=== PATIENT | male | born 1935 | race Caucasian/White ===

== ENCOUNTER 2016-09-19 09:07 | Inpatient (IN) | payer MEDICARE ==
[~2016-09-19] VITALS: Ht 172.7 cm; Wt 80.5 kg
[~2016-09-19 09:07] MED LIST: ASA CHILDREN'S81 MG PO; BRILINTA90 MG PO; COREG6.25 MG PO; LIPITOR DPS40 MG PO; NORVASC DPS10 MG PO; PROTONIX40 MG PO; ZESTRIL10 MG PO
--- NOTE | 2016-09-21 10:26 | CO ---
ADMIT: 09/19/2016 RM/LOC: 622 [facility] MR#: [id number] [address] [address] MAG [place]OHANSEN [address] [address] [place] [address] Consultation SEX: M AGE: 81 : 1935 DATE OF CONSULTATION: 09/19/2016 ATTENDING PHYSICIAN: Redd Lay CONSULTING PHYSICIAN: Jason Polk MD HISTORY OF PRESENT ILLNESS: The patient is a very pleasant 81-year-old male, who has never had previous colonoscopy screening, who about a year ago had upper GI bleed. Dr. Monroe had done an upper endoscopy and noticed a little bleeding around his esophageal junction. He, at that time, was on Brilinta and aspirin I believe. He is currently off the Brilinta, but I believe, does take a daily aspirin now. He has been feeling normal and in no abdominal distress until he developed some kind of crampy abdominal discomfort and had two bloody bowel movements this morning, he described these as bright red. Since his last endoscopy by Dr. Monroe, he has been on omeprazole since that time on a consistent basis. Denies taking anything for arthritis, any nonsteroidals. His admitting hemoglobin was 11.7. His BUN was normal at 17. His repeat hemoglobin was 11.3. PAST MEDICAL HISTORY: Includes hypertension and coronary artery disease about a year ago. He did have a myocardial infarction. MEDICATIONS: His medications are outlined in the hospital chart, but I believe it includes: 1. Atorvastatin. 2. Lisinopril. 3. Aspirin. 4. Coreg. ALLERGIES: HE HAS NO ALLERGIES. SOCIAL HISTORY: He is a nondrinker, nonsmoker. FAMILY HISTORY: Denies a family history of coronary artery disease. REVIEW OF SYSTEMS: Denies headaches, chest pain, or shortness of breath. He has had bloody stools per HPI. No extremity complaints. No hematologic, neurologic, or psychiatric issues. PHYSICAL EXAMINATION: VITAL SIGNS: He is afebrile. Vitals stable. HEART: Regular. LUNGS: Clear. ADMIT: 09/19/2016 RM/LOC: 622 [facility] MR#: [id number] [address] [address] JORGEMAG TURNER Tracey [address] [place], [place] [id number] Consultation SEX: M AGE: 81 : 1935 ABDOMEN: Soft, nondistended, nontender. EXTREMITIES: No peripheral edema. NEURO: No focal neurologic deficits. ASSESSMENT AND PLAN: The patient is an 81-year-old male with likely a lower gastrointestinal bleed with it being bright red and being on scheduled proton pump inhibitor. The patient is very resistant about proceeding with colonoscopy surveillance. At this point in time, after discussion with Dr. Lay, we will take a watchful waiting approach, watch his hemoglobin and see if he clinically bleeds anymore. Depending on what we see, we may proceed with upper endoscopy or a combination of scopes if the patient is willing and/or possibly, just again, follow him as an outpatient. Jason Polk MD/ christina JOB #: [id number] CC: Redd Lay, Attending Physician Redd Lay, Family Physician
--- NOTE | 2016-09-21 14:56 | HP ---
ADMIT: 09/19/2016 RM/LOC: 622 [facility] MR#: [id number] [facility]#: [id number] [address] [address] [place] [address] [address] [facility] [place] [address] History and Physical SEX: M AGE: 81 : 1935 DATE OF SERVICE: CHIEF COMPLAINT: Melena. HISTORY OF PRESENT ILLNESS: The patient is a very pleasant 81-year-old male, normally resides at home with his , who reported abrupt onset early hours this morning of initially very dark tarry black stools, similar when he has had with peptic ulcer disease in the past. This proceeded to be repeated bowel movement with bright red blood. He has not had any since this morning. No new dizziness. No new weakness. No new shortness of breath. No new fatigue. He has not had anything similar. He does remain on his PPI and has been on this chcf. Previous event was related to being on Brilinta after a stent placement. He is only on aspirin at this point in time. The patient last scoped in June 2015. PAST MEDICAL HISTORY: 1. Coronary artery disease, status post stenting and STEMI in the fall of 2014. 2. Hypertension. 3. History of esophageal ulcer. FAMILY HISTORY: Father of liver cancer. MEDICATIONS: He is on: 1. Ferrous sulfate daily. 2. Aspirin 81 mg a day. 3. Atorvastatin 40 mg daily. 4. Carvedilol 6.25 mg p.o. b.i.d. 5. Protonix 40 mg daily. 6. Lisinopril 20 mg daily. SOCIAL HISTORY: He lives at home with his . Retired carbone. No smoking. REVIEW OF SYSTEMS: As per HPI. Otherwise, completely reviewed and negative. PHYSICAL EXAMINATION: VITAL SIGNS: Temperature 99.1, pulse 60, respiratory rate 20, blood pressure 116/67, O2 saturation 100% on room air. GENERAL: He is alert and oriented x3. No acute distress. Pleasant as always. HEENT: Normocephalic, atraumatic. Pupils equally reactive to light and accommodation. No scleral icterus. Dry mucous membranes. NECK: No lymphadenopathy. Soft, supple. Trachea midline. LUNGS: Clear to auscultation bilaterally. No wheezes, rales, or rhonchi. HEART: Regular rate and rhythm. No murmurs, rubs, or gallops. ABDOMEN: Soft, nontender, nondistended. Bowel sounds present. EXTREMITIES: No cyanosis, clubbing, or edema. MUSCULOSKELETAL: 5/5 strength in all 4 extremities. NEUROLOGICAL: No focal deficits noted. Cranial nerves II through XII are grossly intact. ADMIT: 09/19/2016 RM/LOC: 622 [facility] MR#: [id number] [address] [address] [address] JOHANSEN [address] [place] [address] History and Physical SEX: M AGE: 81 : 1935 SKIN: No rashes noted. Dry. LABORATORY AND X-RAY DATA: His creatinine is 1.2. Protime is normal. White count 6.3, hemoglobin 11.7, is now 11.3 upon repeat. Potassium 4.2. Fecal occult blood is positive. ASSESSMENT: 1. Gastrointestinal bleed with a history of esophageal ulcer, presumed recurrent. 2. Coronary artery disease. 3. Hypertension. PLAN: At this point in time, we will hold his aspirin. Hopefully, we can restart it soon. We will trend his hemoglobin at this point in time. We will have General Surgery see him. We will give him IV Protonix. Watch hemoglobin closely. Clears only at this point in time. Redd Lay MD/ christina JOB #: [id number] CC: Redd Lay, Attending Physician Redd Lay, Family Physician
--- NOTE | 2016-09-22 21:42 | DS ---
ADMIT: 09/19/2016 RM/LOC: 622 [facility] MR#: [id number] [address] [place] [place] [address] MAG [place]OHANSEN [address] [place] [address] Discharge Summary SEX: M AGE: 81 : 1935 ADMISSION DATE: 09/19/2016 DISCHARGE DATE: 09/21/2016 CONSULTATIONS: General Surgery. PROCEDURES: Underwent an EGD and colonoscopy on the 21 of September. FINAL DIAGNOSES: 1. Cecal mass, colon cancer. 2. Acute GI (gastrointestinal) bleed. 3. Coronary artery disease. 4. Hypertension. REASON FOR ADMISSION: The patient is a pleasant, 81-year-old gentleman, who presents to the emergency room with very dark, tarry melanotic stools, and then bright red blood per rectum. Admitted for further stabilization. HOSPITAL COURSE: The patient was admitted. No further blood loss. Had some drop in his hemoglobin. Ultimately, discussions with Surgery were had. Underwent the above-mentioned procedure. Found to have a cecal mass of colon cancer. CT scan was obtained, which showed a 3.6 cm mass in the cecum with extension into the base of the appendix suspicious for malignancy and 3 nearby lymph nodes that represent metastatic disease likely. Arrangements were made for him to follow up with General Surgery within short duration this next week. Plan on outpatient surgical resection likely. The patient to hold his aspirin through the weekend until he is seen by Surgery next week. DISCHARGE INSTRUCTIONS: Follow up with Surgery. See me in two weeks. Hold his aspirin for now. Redd Lay MD/ haile JOB #: [id number] CC: Redd Lay MD, Attending Physician Redd Lay MD, Family Physician
[2016-09-23] MEDS ORDERED: FEOSOL-DPS325 MG PO (15:18)
--- NOTE | 2016-09-24 10:38 | ER ---
ADMIT: 09/19/2016 RM/LOC: ER [facility] MR#: [id number] [address] [address] [place] [address] [address] [facility] [place] [address] Emergency Room Report SEX: M AGE: 81 : 1935 DATE: 09/19/2016 BRIEF ADDENDUM: Please see my T-sheet for complete review of systems past medical history, and physical exam. CHIEF COMPLAINT: Rectal bleeding. HISTORY OF PRESENT ILLNESS: This is a pleasant 81-year-old white male, who presents after 2 episodes of bright red blood in his stool today. The patient states at approximately 0600 hours and 0730 hours this morning, he had 2 right red stools with bright red blood in the toilet water. He does have a history of an upper GI bleed last July which he was hospitalized and diagnosed with peptic ulcer. He has been on omeprazole since that time. He also does take some iron pills and admits to some dark stools secondary to this medication. Does have a cardiac history with an ST elevated PA in 2014. He was on Brilinta secondary to some stents. With his first GI bleed, however, he is no longer on the Brilinta at this point. Otherwise, feels well today. No abdominal pain. No nausea, vomiting. COURSE IN THE EMERGENCY ROOM: The patient is seen and examined. He is afebrile and nontoxic. Blood pressures have been stable. Heart rate had been non tachycardic. No tenderness in the abdomen. Did do a rectal exam, no obvious external hemorrhoids or source of bleeding identified. Hemoccult- positive stools. Lab work on him today shows white count 6.3, hemoglobin 11.7, hematocrit 37.4, and platelets 164. Sodium 142, potassium 4.2, CO2 of 27, BUN 17, glucose 126, creatinine 1.2, AST 15, ALT 16. PT 11.4, INR 1.09, and PTT 27.6. O positive with antibody screen pending. He was given 80 Protonix IV. I also did consult with Dr. Lay who felt this patient was suitable for admission today for continued observation and trending of his blood count. IMPRESSION: 1. Gastrointestinal bleed with hematochezia. 2. History of coronary artery disease. 3. History of upper gastrointestinal bleed. DISPOSITION: Patient will be admitted to Med/Surg in the care of Dr. Lay for further evaluation and management. He is discharged to the floor in guarded but stable condition. HANNAH Anthony / Pio Mac MD / caydenl JOB #: [id number] CC: Pio Mac MD, Attending Physician Redd Lay MD, Family Physician
[2016-10-08] MEDS ORDERED: NORCO 5-325 TA1 EACH PO (07:42)
--- NOTE | 2016-10-29 08:51 | OR ---
ADMIT: 09/19/2016 RM/LOC: 2 [facility] MR#: [id number] [address] [address] MAG [place] [address] [address] [place] [address] Operative/Delivery Room Report SEX: M AGE: 81 : 1935 SURGERY DATE: 09/21/2016 SURGEON: Jason Polk MD PRE-PROCEDURE DIAGNOSES: 1. Anemia. 2. Gastrointestinal bleed. POSTPROCEDURE DIAGNOSES: 1. Gastritis. 2. Gastric fundic polyp. 3. Moderate focal sigmoid diverticular disease. 4. Cecal mass. PROCEDURES: 1. EGD with gastric body and fundic biopsies. 2. Colonoscopy with cecal mass biopsies. INDICATIONS: Patient 81-year-old presented with anemia and gastrointestinal bleed. He presented for upper and lower endoscopy. FINDINGS: The patient was taken to the endoscopy suite. IV sedation was given. He was placed in left lateral decubitus position. A bite block was placed in the patient's mouth. The gastroscope was introduced down the oropharynx, down the esophagus, into the stomach through the pylorus and the duodenum. The duodenal bulb, second and third portion of the duodenum appeared normal with no pathology. The gastric antrum appeared normal, but on retroflexion view, there was some obvious irritation and inflammation along the gastric body and just one focal area that did not seem to be a discrete ulcer and/or mass there, but certainly very friable area, so I did do biopsies in this area. Also on retroflexion view, right at the gastric side of the GE junction, there was a fundic, about 1, may be almost 2 cm fundic mass and/or polyp. I did do multiple biopsies of this polyp and sent it for histologic ADMIT: 09/19/2016 RM/LOC: 2 [facility] MR#: [id number] [address] [address] [place] [address] [address] [place] [address] Operative/Delivery Room Report SEX: M AGE: 81 : 1935 review. On examining the distal esophagus, it appeared normal with no Manzo's esophagus, no inflammation, no strictures. Remainder the esophagus normal. The gastroscope was removed. Next, the colonoscope introduced per rectum advanced to cecum. Right within the cecum proper, there was a large fungating cecal mass. Biopsies were taken of this mass. There was another polyp on the other side of the cecum that I just left alone simply because it will be removed with his colon resection. On remainder of the colonoscopic surveillance, there was a small transverse colon polyp, I removed with several bites of the cold biopsy forceps. There were no further masses or polyps but there was evidence of severe focal sigmoid diverticular disease. The rectal mucosa was normal. The colonoscope was removed. The patient tolerated the procedure without difficulty, transferred to recovery room in good condition. Jason Polk MD/ christina JOB #: [id number] CC: Redd Lay, Attending Physician Redd Lay, Family Physician
== END 2016-09-21 14:05 | disposition home or self-care (01) | DRG 375 ==
LOC: ER 09:07 → 6PED 11:05
PROVIDERS: ADMIT Internal Medicine
PROC: 0DBL8ZZ Excision of Transverse Colon, Via Natural or Artificial Opening Endoscopic (ICD-10-PCS; principal; 2016-09-21)
PROC: 0DB48ZX Excision of Esophagogastric Junction, Via Natural or Artificial Opening Endoscopic, Diagnostic (ICD-10-PCS; principal; 2016-09-21)
PROC: 0DB68ZX Excision of Stomach, Via Natural or Artificial Opening Endoscopic, Diagnostic (ICD-10-PCS; principal; 2016-09-21)
PROC: 0DBH8ZX Excision of Cecum, Via Natural or Artificial Opening Endoscopic, Diagnostic (ICD-10-PCS; principal; 2016-09-21)
DX: C18.0 Malignant neoplasm of cecum (principal); C77.9 Secondary and unspecified malignant neoplasm of lymph node, unspecified; K92.1 Melena; D62 Acute posthemorrhagic anemia; I10 Essential (primary) hypertension; D12.3 Benign neoplasm of transverse colon; K31.7 Polyp of stomach and duodenum; K29.70 Gastritis, unspecified, without bleeding; D13.1 Benign neoplasm of stomach; K57.30 Diverticulosis of large intestine without perforation or abscess without bleeding; I25.10 Atherosclerotic heart disease of native coronary artery without angina pectoris; Z95.5 Presence of coronary angioplasty implant and graft; Z79.82 Long term (current) use of aspirin; I25.2 Old myocardial infarction; Z87.11 Personal history of peptic ulcer disease

== ENCOUNTER 2016-10-02 06:05 | Inpatient (IN) | payer MEDICARE ==
[~2016-10-02] VITALS: Ht 172.7 cm; Wt 85.5 kg
--- NOTE | ~2016-10-02 | OR ---
ADMIT: 10/02/2016 RM/LOC: 525 [facility] MR#: [id number] [address] [address] MAG [place] [address] [address] [place] [address] Operative/Delivery Room Report SEX: M AGE: 81 : 1935 Corrected: 10/03/2016 0726 [facility] SURGERY DATE: 10/02/2016 SURGEON: Jason Polk MD SHELL ASSEMBLER: Ibrahima Monroe MD. PRE PROCEDURE DIAGNOSIS: Right-sided cecal cancer. POSTPROCEDURE DIAGNOSIS: Right-sided cecal cancer. PROCEDURE: Laparoscopic right hemicolectomy. INDICATIONS: The patient is an 81-year-old, recently found to be anemic underwent colonoscopy surveillance found to have a large cecal cancer who presents for laparoscopic versus open right hemicolectomy. FINDINGS: The patient was taken to the operating room. General endotracheal anesthesia was induced. The patient's abdomen was prepped and draped in normal sterile fashion. The case was begun by making a vertical supraumbilical 5 mm skin incision using #11 blade. A retractable 5 mm port was placed within the abdomen. The abdomen was insufflated with CO2 to an intra-abdominal pressure of 15 mmHg. A camera was placed showing no bowel or vascular injury. An epigastric 5 mm port, infraumbilical 5 mm port in the left lower quadrant 12 mm port was placed under direct vision. The case was begun by mobilizing the right colon from the right retroperitoneum along the white line of Toldt using Harmonic scalpel. We first started dissection at transverse colon, lifting up the omentum and obtaining access to lesser sac. We continued this dissection around the hepatic flexure again along the white line of Toldt towards the ileocecal valve or ileocecal region. We fully mobilized the ileocecal region again along the white line of Toldt. Then, we were able to lift the cecum up cephalad and dissect the visceral peritoneum along the medial aspect of the right colon mesentery, identified the takeoff of the ileocolic artery. We were able to easily identify the duodenal sweep. We divided the take-off the ileocolic artery with an Endo MELY 45, 2.5 mm stapler. We continued this dissection medially along the transverse mesocolon and identified the take-off the branch of the right middle colic artery, and we divided this with an Endo MELY 45, 2.5 mm stapler. The remainder of that dissection of the small and large bowel mesentery was used using Harmonic scalpel dissection. We then combined our epigastric and supraumbilical port sites with a #10 blade. Dissection was carried down through subcutaneous fat, fascia, and electrocautery. Using electrocautery, we placed a wound protector through the wound, brought the specimen out through our incision identifying a very large cecal cancer. We divided the remainder of the small bowel mesentery between clamps and 0 Vicryl ties. We then created a gxsj-xx-qgbm stapled ileocolic anastomosis dividing the colon and small bowel with Metzenbaum scissors to create a dthj-wt-vugl anastomosis with a 75 MELY stapler. Examining the mucosal staple line was intact with no bleeding. We then used Allis clamps to ADMIT: 10/02/2016 RM/LOC: 525 [facility] MR#: [id number] [address] [place] [address] MAG JOHANSEN [address] [place] [address] Operative/Delivery Room Report SEX: M AGE: 81 : 1935 approximate our common enterotomy and closed the common enterotomy with 2 firings of a 75 MELY stapler. We then changed our gloves, I reinforced the apex of the staple line with 4 interrupted seromuscular 3-0 silk pop-off sutures, and then I reinforced the common enterotomy staple line with a running 3-0 silk seromuscular suture. There was no bleeding noted. We returned the bowel loops back into the intra-abdominal space. Removed the wound protector, closed the abdominal wall fascia with running single stranded #1 PDS suture. We re- insufflated the intra-abdominal space. Re-examined our operative site. There was no bleeding noted. Our anastomosis rested easily in the right upper quadrant. Our midline closure appeared intact. I then closed the left lower quadrant 12 mm port site incision with a ugryqz-bm-gbijw 0 Polysorb suture passer. The air was desufflated. The port sites removed. The skin sites were closed with interrupted skin vy. Wounds were cleaned, dried, and dressed. The patient tolerated the procedure without difficulty. He was extubated, wheeled to recovery room in good condition. Jason Polk MD/ christina JOB #: [id number] CC: Jason Polk, Attending Physician Redd Lay, Family Physician Corrected: 10/03/2016 0726 [facility]
[~2016-10-02 06:05] MED LIST changes: +FEOSOL-DPS325 MG PO
[2016-10-08] MEDS ORDERED: NORCO 5-325 TA1 EACH PO (07:42)
--- NOTE | 2016-10-29 08:51 | DS ---
ADMIT: 10/02/2016 RM/LOC: 525 [facility] MR#: [id number] [address] [address] [place] [address] [address] [place] [address] Discharge Summary SEX: M AGE: 81 : 1935 ADMISSION DATE: 10/02/2016 DISCHARGE DATE: 10/06/2016 ADMITTING DIAGNOSIS: Right-sided cecal cancer. DISMISSAL DIAGNOSES: 1. Right-sided cecal cancer, final pathology pending. 2. Previous acute LA (myocardial infarction). 3. Hypertension. 4. Coronary artery disease with stent placement. PROCEDURES: Laparoscopic right hemicolectomy. HOSPITAL COURSE: The patient was an inpatient admit with routine med/surg orders. After surgery, the patient transferred to the floor without any complications. He was given a morphine RETURNED MATERIALS INSPECTOR for pain control and was started on clears. Overall, the patient recovered well while in the hospital. His pain was controlled so he was weaned off his morphine RETURNED MATERIALS INSPECTOR and was tolerating oral pain medications. His [place] that was placed intraoperatively was pulled on postop day number one and vitals remained stable. He tolerated an advanced diet and had normal return of his bowel function. He continued to recover well and was able to discharge to home. DISCHARGE INSTRUCTIONS: 1. Diet as tolerated. 2. No lifting greater than 15 pounds. 3. Follow up with Dr. Polk on Saturday, 10/10. DISCHARGE MEDICATIONS: 1. Lisinopril 20 mg daily. 2. Carvedilol 6.25 mg b.i.d. 3. Pantoprazole 40 mg daily. 4. Atorvastatin 40 minutes mg daily. 5. Ferrous sulfate 325 mg daily. 6. Aspirin 81 mg daily. 7. Lortab 5/325, one tablet q.4h p.r.n. HANNAH Everett / Jason Polk MD / nikolai JOB #: [id number] CC: Jason Polk MD, Attending Physician Redd Lay MD, Family Physician
== END 2016-10-06 13:25 | disposition home or self-care (01) | DRG 331 ==
LOC: WOR 06:05 → 5MS 06:05
PROVIDERS: ADMIT Surgery
PROC: 0DTF4ZZ Resection of Right Large Intestine, Percutaneous Endoscopic Approach (ICD-10-PCS; principal; 2016-10-02)
DX: C18.0 Malignant neoplasm of cecum (principal); D64.9 Anemia, unspecified; I10 Essential (primary) hypertension; I25.10 Atherosclerotic heart disease of native coronary artery without angina pectoris; K21.9 Gastro-esophageal reflux disease without esophagitis; I25.2 Old myocardial infarction; Z95.5 Presence of coronary angioplasty implant and graft